=== PATIENT | male | born 1960 | race Caucasian/White ===

== ENCOUNTER → 2024-09-19 09:26 | Outpatient (REF) | payer SELFPAY | LOC: HWRAD 09:26 | PROVIDERS: ATTENDING PHYSICIAN Family Medicine | DX: E78.00 Pure hypercholesterolemia, unspecified (principal) | CPT/HCPCS: 75571 ==

== ENCOUNTER 2024-12-19 06:22 | Day surgery (SDC) | payer OTHER, SELFPAY | END 2024-12-19 08:24 | disposition home or self-care (01) | LOC: GI 06:22 | PROVIDERS: ATTENDING PHYSICIAN Internal Medicine Gastroenterology | DX: Z12.11 Encounter for screening for malignant neoplasm of colon (principal); K57.30 Diverticulosis of large intestine without perforation or abscess without bleeding; K64.8 Other hemorrhoids; Z86.0100 Personal history of colon polyps, unspecified | CPT/HCPCS: G0105 ==